=== PATIENT | male | born 1995 | race American Indian/Alaskan Native ===

== ENCOUNTER 2020-07-22 20:40 | Emergency (ER) | payer SELFPAY ==
--- NOTE | 2020-07-23 00:07 | XRay Report ---
CHEST 2 VIEWS, 07/22/2020 10:55 PM INDICATION: Chest pain COMPARISON: None FINDINGS: Support devices: None. Heart: The cardiac silhouette is normal in size. Lungs/pleura: The lungs are well expanded and appear clear of focal airspace disease or significant p leural effusion. Additional findings: No significant acute abnormality. IMPRESSION: 1. No evidence of acute cardiopulmonary process. Signer Name: Lata Tee MD Signed: 07/23/2020 12:02 AM Workstation Name: [id number]
[2020-07-23] MEDS ORDERED: ACETAMINOPHEN 500 MG TAB PO ONE (03:46)
[2020-07-23] MEDS ORDERED: FAMOTIDINE 20 MG TAB PO ONE (03:46)
[2020-07-23] MEDS ORDERED: ASPIRIN EC 325 MG TAB PO ONE (03:46)
[2020-07-23 04:42] LABS: Basophils % (Auto) 0.2 % (0.0-1.8); Eosinophils # (Auto) 0.2 K/mm3 (0.0-0.4); Eosinophils % (Auto) 1.8 % (0.0-4.3); Hematocrit 45.1 % (35.5-45.6); Hemoglobin 15.4 gm/dl (11.8-15.2); Lymphocytes # (Auto) 2.6 K/mm3 (1.2-5.4); Lymphocytes % (Auto) 31.3 % (13.4-35.0); Mean Corpuscular HGB Conc 34 % (32-34); Mean Corpuscular Volume 91 fl (84-94); Monocytes # (Auto) 0.7 K/mm3 (0.0-0.8); Platelet Count 223 K/mm3 (140-440); Red Blood Count 4.94 M/mm3 (3.65-5.03)
[2020-07-23 05:04] LABS: Alanine Aminotransferase 12 units/L (7-56); Albumin 4.2 g/dL (3.9-5); BUN/Creatinine Ratio 13; Blood Urea Nitrogen 10 mg/dL (9-20); Calcium 9.3 mg/dL (8.4-10.2); Hemolysis Index 14
--- NOTE | 2020-07-23 05:25 | Emergency Department Report ---
ED Chest Pain HPI - General Chief Complaint: Chest Pain Stated Complaint: CHEST PAIN Source: patient Mode of arrival: Ambulatory Limitations: No Limitations - History of Present Illness Initial Comments: Patient is a 24-year-old -[place] male with past medical history of asthma who presents to the ED with complaint of acute onset persistent substernal chest pain constantly for the last 12 hours. Patient states that the pain is worse with movement or inhalation or coloration of his chest. Patient states that the pain is sharp and constant and continues to wax and wane. Patient denies nausea and vomiting, shortness of breath, fever, chills, cough, sore throat, nasal and sinus congestion, traumatic injury, heavy lifting, fall, back pain, abdominal pain, change in vision, neck pain or headache. MD Complaint: chest pain -: Sudden, hour(s) (12) Onset: awoke with symptoms Pain Location: substernal Pain Radiation: none Severity scale (0 -10): 5 Quality: aching, sharp Consistency: constant Improves With: nothing Worsens With: inspiration, palpation, movement re: denies: nausea, vomting, diaphoresis, dyspnea, sense of impending doom Other Symptoms: denies: cough, fever, syncope, rash, acid taste in mouth, leg swelling, palpitations, burping Treatments Prior to Arrival: none - Related Data On Oral Contraceptives: No Previous Rx's Medication Instructions Recorded Last Taken Type Famotidine [Pepcid] 20 mg PO BID #30 tablet 07/23/20 Unknown Rx Naproxen 500 mg PO Q12H PRN #30 tablet 07/23/20 Unknown Rx Allergies Allergy/AdvReac Type Severity Reaction Status Date / Time No Known Allergies Allergy Unverified 07/22/20 23:24 Heart Score - HEART Score History: Slightly suspicious EKG: Normal Age: < 45 Risk factors: No known risk factors Troponin: < normal limit HEART Score: 0 - Critical Actions Critical Actions: 0-3 pts:0.9-1.7%risk of adverse cardiac event.Candidate for discharge ED Review of Systems ROS: Stated complaint: CHEST PAIN Other details as noted in HPI Constitutional: denies: chills, fever Eyes: denies: eye pain, eye discharge, vision change ENT: denies: ear pain, throat pain Respiratory: denies: cough, shortness of breath, wheezing Cardiovascular: chest pain (Substernal chest pain). denies: palpitations Endocrine: no symptoms reported Gastrointestinal: denies: abdominal pain, nausea, diarrhea Genitourinary: denies: urgency, dysuria Musculoskeletal: denies: back pain, joint swelling, arthralgia Skin: denies: rash, lesions Neurological: denies: headache, weakness, paresthesias Psychiatric: denies: anxiety, depression Hematological/Lymphatic: denies: easy bleeding, easy bruising ED Past Medical Hx - Past Medical History Previous Medical History?: Yes Hx Asthma: Yes - Surgical History Past Surgical History?: No - Social History Smoking Status: Never Smoker Substance Use Type: None - Medications Home Medications: Home Medications Medication Instructions Recorded Confirmed Last Taken Type Famotidine [Pepcid] 20 mg PO BID #30 tablet 07/23/20 Unknown Rx Naproxen 500 mg PO Q12H PRN #30 tablet 07/23/20 Unknown Rx ED Physical Exam - General Limitations: No Limitations General appearance: alert, in no apparent distress - Head Head exam: Present: atraumatic, normocephalic, normal inspection - Eye Eye exam: Present: normal appearance, PERRL, EOMI Pupils: Present: normal accommodation - ENT ENT exam: Present: normal exam, normal orophraynx, mucous membranes moist, TM's normal bilaterally, normal external ear exam - Neck Neck exam: Present: normal inspection, full ROM. Absent: tenderness - Respiratory Respiratory exam: Present: normal lung sounds bilaterally, chest wall tenderness (Palpable anterior chest wall tenderness). Absent: respiratory distress, wheezes, rales, rhonchi, stridor, accessory muscle use, decreased breath sounds, prolonged expiratory - Cardiovascular Cardiovascular Exam: Present: regular rate, normal rhythm, normal heart sounds. Absent: systolic murmur, diastolic murmur, rubs, gallop - GI/Abdominal GI/Abdominal exam: Present: soft, normal bowel sounds. Absent: tenderness, guarding, hyperactive bowel sounds, hypoactive bowel sounds, organomegaly, mass, bruit - Extremities Exam Extremities exam: Present: normal inspection, full ROM, normal capillary refill - Back Exam Back exam: Present: normal inspection, full ROM. Absent: tenderness, CVA tenderness (R), CVA tenderness (L), muscle spasm, paraspinal tenderness - Neurological Exam Neurological exam: Present: alert, oriented X3, CN II-XII intact, normal gait, reflexes normal - Psychiatric Psychiatric exam: Present: normal affect, normal mood - Skin Skin exam: Present: warm, dry, intact, normal color. Absent: rash ED Course Vital Signs 07/22/20 23:06 Temperature 98.1 F Pulse Rate 64 Respiratory 16 Rate Blood Pressure 132/80 O2 Sat by Pulse 98 Oximetry LUCIO score - Lucio Score Age > 65: (0) No Aspirin use within the Past 7 Days: (0) No 3 or more CAD Risk Factors: (0) No 2 or more Angina events in past 24 hrs: (0) No Known CAD with more than 50% Stenosis: (0) No Elevated Cardiac Markers: (0) No ST Deviation Greater than 0.5mm: (0) No LUCIO Score: 0 ED Medical Decision Making - Lab Data Result diagrams: 07/23/20 04:21 07/23/20 04:21 - EKG Data EKG shows normal: sinus rhythm Rate: normal - EKG Data Interpretation: normal EKG 07/23/20 06:10 The EKG shows normal sinus rhythm with a ventricular rate of [address] or T wave abnormalities. - Radiology Data Radiology results: report reviewed, image [place] [address] XRay Report Signed Patient: RADHA SLOAN MR#: [id number] : 1995 Acct:[id number] Age/Sex: 24 / M ADM Date: 07/22/20 Loc: ED Attending Dr: Ordering Physician: ED MD ROXY Date of Service: 07/22/20 Procedure(s): XR chest routine 2V Accession Number(s): [id number] cc: ED MD ROXY Fluoro Time In Minutes: CHEST 2 VIEWS, 07/22/2020 10:55 PM INDICATION: Chest pain COMPARISON: None FINDINGS: Support devices: None. Heart: The cardiac silhouette is normal in size. Lungs/pleura: The lungs are well expanded and appear clear of focal airspace disease or significant pleural effusion. Additional findings: No significant acute abnormality. IMPRESSION: 1. No evidence of acute cardiopulmonary process. Signer Name: Lata Tee MD Signed: 07/23/2020 12:02 AM Workstation Name: [id number] Transcribed By: EB Dictated By: Lata Tee MD Electronically Authenticated By: Lata Tee MD Signed Date/Time: 07/23/201 DD/ TD/TT: - Medical Decision Making This is a 24-year-old -[place] male with past medical history of asthma who presents to the ED with complaint of acute onset persistent substernal chest pain constantly for the last 12 hours. Patient states that the pain is worse with movement or inhalation or coloration of his chest. Patient states that the pain is sharp and constant and continues to wax and wane. In the ED, patient is alert and oriented x3 and is not in distress with normal vital signs. EKG shows normal sinus rhythm with ventricular rate of [address] or T wave abnormalities. Lab test results are all nonactionable. Patient heart score is 0 and is PERC negative per Wells criteria. Patient was treated for pain and also with antacids. Chest x-ray shows no acute cardiopulmonary abnormalities or pneumonitis. On reevaluation, patient felt better and was discharged home on medications for pain and advised to follow-up with his primary care physician in 5 to 7 days for reevaluation or otherwise return to the ED immediately if sy mptoms get worse. - Differential Diagnosis Costochondritis; muscle strain; pneumonia; ACS; PE; pneumothorax Critical care attestation.: If time is entered above; I have spent that time in minutes in the direct care of this critically ill patient, excluding procedure time. ED Disposition Clinical Impression: Acute costochondritis, Acute nonspecific chest pain with low risk of coronary artery disease Disposition: DC-01 TO HOME OR SELFCARE Is pt being admited?: No Does the pt Need Aspirin: No Condition: Stable Instructions: Chest Pain (ED), Costochondritis, [id number], Nonspecific Chest Pain, Adult, [id number], Chest Wall Pain, [id number] Additional Instructions: All lab test results were reviewed and are all nonactionable. Chest x-ray shows no acute cardiopulmonary abnormalities or pneumonitis. Therefore take medications with food, drink plenty of fluids and follow-up with your primary care physician in 5 to 7 days for reevaluation. Return to the ED immediately if symptoms get worse. Prescriptions: Naproxen 500 mg PO Q12H PRN #30 tablet PRN Reason: Pain , Severe (7-10) Famotidine [Pepcid] 20 mg PO BID #30 tablet Referrals: [facility] [Provider Group] - 3-5 Days Forms: Work/School Release Form(ED) Time of Disposition: 05:26 Print Language: POLISH
[2020-07-23 06:10] VITALS: BP 116/72
== END 2020-07-23 06:09 | disposition home or self-care (01) ==
LOC: ED 20:40
DX: M94.0 Chondrocostal junction syndrome [Tietze] (principal); I25.10 Atherosclerotic heart disease of native coronary artery without angina pectoris; J45.909 Unspecified asthma, uncomplicated; Z79.899 Other long term (current) drug therapy
CPT/HCPCS: 36415; 71046; 80053; 84484; 85025; 93005